=== PATIENT | male | born 1965 | race Caucasian/White ===

== ENCOUNTER 2018-03-21 15:02 | Emergency (ER) | payer OTHER ==
[~2018-03-21] VITALS: Ht 162.6 cm; Wt 90.7 kg
[2018-03-21 15:26] VITALS: BP 144/80
[2018-03-21] MEDS ORDERED: TORADOL IM STA (15:54)
[2018-03-21] MEDS ORDERED: TORADOL ONE (15:59)
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
[2018-03-21 16:20] VITALS: BP 132/89
[2018-03-21 16:25] VITALS: BP 132/89
== END 2018-03-21 16:22 | disposition home or self-care (01) ==
LOC: ER 15:02
DX: R51 Headache (principal); M54.2 Cervicalgia; Z87.891 Personal history of nicotine dependence
CPT/HCPCS: 96372; 99283; J1885